=== PATIENT | male | born 1995 | race Caucasian/White ===

== ENCOUNTER 2018-07-20 13:40 | Emergency (ER) | payer BC ==
[2018-07-20 13:48] VITALS: BP 124/62; PULSE 86; TEMP 98.5; BMI 20.1
--- NOTE | 2018-07-20 15:27 | PDOC ---
History of Present Illness - General Chief Complaint: Ear Problem Stated Complaint: PRESSURE TO EARS FEELS LIGHTHEADED Time Seen by Provider: 07/20/18 14:09 Past History - Past Medical History Allergies/Adverse Reactions: Allergies Allergy/AdvReac Type Severity Reaction Status Date / Time No Known Allergies Allergy Unverified 07/20/18 13:41 Home Medications: Ambulatory Orders Cetirizine HCl/Pseudoephedrine [Zyrtec-D Tablet] 1 each PO BID #14 tab.er.12h Ondansetron HCl [Zofran] 4 mg PO BID #12 tablet 07/20/18 Sertraline HCl [Zoloft -] 50 mg PO DAILY 07/20/18 COPD: No Psychiatric Problems: Yes (DEPRESSION) - Suicide/Smoking/Psychosocial Hx Smoking History: Never smoked Information on smoking cessation initiated: No Hx Alcohol Use: Yes (SOCIAL) Drug/Substance Use Hx: No *Physical Exam - Vital Signs Last Vital Signs Temp Pulse Resp BP Pulse Ox 98.5 F 86 16 124/62 100 07/20/18 13:41 07/20/18 13:41 07/20/18 13:41 07/20/18 13:41 07/20/18 13:41 Moderate Sedation - Procedure Monitoring Vital Signs: Procedure Monitoring Vital Signs Temperature 98.5 F 07/20/18 13:41 Pulse Rate 86 07/20/18 13:41 Respiratory Rate 16 07/20/18 13:41 Blood Pressure 124/62 07/20/18 13:41 O2 Sat by Pulse Oximetry (%) 100 07/20/18 13:41 *DC/Admit/Observation/Transfer Diagnosis at time of Disposition: Acute viral syndrome - Discharge Dispostion Disposition: HOME Condition at time of disposition: Stable Decision to Admit order: No - Referrals Referrals: Jon Chin MD [Staff Physician] - - Patient Instructions Printed Discharge Instructions: DI for Viral Syndrome Additional Instructions: Fluids as directed - Post Discharge Activity Forms/Work/School Notes: Back to Work
== END 2018-07-20 15:32 | disposition home or self-care (01) ==
LOC: FER 13:40
DX: B34.9 Viral infection, unspecified (principal); F32.9 Major depressive disorder, single episode, unspecified
CPT/HCPCS: 99282-25